=== PATIENT | female | born 1960 ===

== ENCOUNTER → 2025-05-06 09:49 | Outpatient (CLI) | payer OTHER ==
[2025-05-06 10:51] LABS: CREATININE SERUM 0.95 mg/dL (0.55-1.02)
== END | disposition home or self-care (01) ==
LOC: LAB 09:49
DX: C64.9 Malignant neoplasm of unspecified kidney, except renal pelvis (principal)

== ENCOUNTER 2025-05-06 10:40 | Outpatient (CLI) | payer OTHER | END 2025-05-06 10:54 | disposition home or self-care (01) | LOC: MRI 10:40 | DX: C7A.093 Malignant carcinoid tumor of the kidney (principal); C64.9 Malignant neoplasm of unspecified kidney, except renal pelvis | CPT/HCPCS: 74183 ==